=== PATIENT | male | born 1960 | race Caucasian/White ===

== ENCOUNTER 2019-02-03 09:02 | Emergency (ER) | payer MEDICARE ==
[2019-02-03] MEDS ORDERED: Iopamidol 370 76% 100 ML VIAL ONE (09:50)
[2019-02-03] MEDS ORDERED: Ketorolac Tromethamine 30 MG/ML VIAL ONE (10:00)
[2019-02-03] MEDS ORDERED: Sodium Chloride 0.9% 1,000 ML ONE (10:00)
[2019-02-03 10:03] LABS: #Basophils 0.2 thou/uL (0.0-0.2); #Eosinphils 0.1 thou/uL (0.0-0.7); #Lymphocytes 4.8 thou/uL (1.20-3.40); #Monocytes 0.9 thou/uL (0.11-0.59); #Neutrophils 5.4 thou/uL (1.40-6.50); %Basophils 1.6 % (0.0-1.0); %Lymphocytes 42.2 % (21.0-51.0); %Monocytes 7.7 % (0.0-10.0); %Neutrophils 47.5 % (42.0-75.0); Mean Corpuscular HGB CONC 31.7 g/dL (32.0-36.0); Mean Corpuscular Hemoglobin 28.7 pg (27.0-31.0); Mean Corpuscular Volume 90.5 fL (78.0-98.0); Mean Platelet Volume 10.8 fL (7.4-10.4); Platelet Count 259 thou/uL (130-400); RBC Distribution Width 11.7 % (11.5-14.5); Red Blood Cell (RBC) Count 6.28 mill/uL (4.70-6.10); White Blood Cell (WBC) Count 11.4 thou/uL (4.8-10.8)
[2019-02-03 10:31] LABS: Anion Gap 15 mmol/L (10-20); BUN (Urea Nitrogen) 11 mg/dL (8.4-25.7); Calc. Creatinine Clearance 0 mL/min (70-130); Calcium 8.7 mg/dL (7.8-10.44); Carbon Dioxide 22 mmol/L (22-29); Chloride 109 mmol/L (98-107); Estimated GFR-MDRD 65; Glucose 89 mg/dL (70-105); Potassium 3.9 mmol/L (3.5-5.1); Sodium 142 mmol/L (136-145)
--- NOTE | 2019-02-03 10:43 | CT ---
CT ABDOMEN WITH CONTRAST CT PELVIS WITH CONTRAST CT LUMBAR SPINE: (Trauma protocol) DATE: 02/03/2019 HISTORY: Trauma to the abdomen and pelvis in 58-year-old male TECHNIQUE: IV injection of iodinated contrast media: Administered Oral contrast media: Not administered FINDINGS: Liver: No laceration Spleen: No laceration Pancreas: No surrounding fluid or fat stranding. Kidneys: No hydronephrosis or laceration. Bladder: No gross evidence of rupture. Abdominal aorta: No dissection or rupture. Small bowel: No dilation. Colon: No adjacent fat stranding. Free air: None. Free fluid: None. Pelvic bones: No displaced acute fracture identified. Lumbar spine: No acute compression fracture. IMPRESSION: No evidence of acute traumatic injury within the abdomen or pelvis.
== END 2019-02-03 11:00 | disposition home or self-care (01) ==
LOC: MADERS 09:02
DX: S30.1XXA Contusion of abdominal wall, initial encounter (principal); E11.9 Type 2 diabetes mellitus without complications; J44.9 Chronic obstructive pulmonary disease, unspecified; F17.210 Nicotine dependence, cigarettes, uncomplicated; Z79.899 Other long term (current) drug therapy; Z79.51 Long term (current) use of inhaled steroids; Z79.891 Long term (current) use of opiate analgesic; Z79.4 Long term (current) use of insulin; V89.2XXA Person injured in unspecified motor-vehicle accident, traffic, initial encounter
CPT/HCPCS: 74177; 80048; 85025; J1885; J7050; Q9967

== ENCOUNTER 2019-04-16 15:08 | Emergency (ER) | payer MEDICARE ==
[2019-04-16] MEDS ORDERED: Insulin Regular 300 UNITS/3 ML VIAL ONE (15:21)
--- NOTE | 2019-04-16 15:34 | RAD ---
PORTABLE CHEST: Date: 04/16/2019 HISTORY: Hyperglycemia. COMPARISON: 05/09/02. FINDINGS: Lungs are clear of infiltrate. Heart and mediastinum appear normal. Vasculature normal. IMPRESSION: No acute findings. POS: [facility]
[2019-04-16 15:42] LABS: #Basophils 0.1 thou/uL (0.0-0.2); #Lymphocytes 0.6 thou/uL (1.20-3.40); #Monocytes 0.8 thou/uL (0.11-0.59); #Neutrophils 12.9 thou/uL (1.40-6.50); %Basophils 0.5 % (0.0-1.0); %Lymphocytes 4.4 % (21.0-51.0); %Monocytes 5.5 % (0.0-10.0); %Neutrophils 89.6 % (42.0-75.0); Hemoglobin 17.1 g/dL (14.0-18.0); Mean Corpuscular HGB CONC 30.3 g/dL (32.0-36.0); Mean Corpuscular Hemoglobin 28.3 pg (27.0-31.0); Mean Corpuscular Volume 93.4 fL (78.0-98.0); Mean Platelet Volume 9.1 fL (7.4-10.4); Platelet Count 174 thou/uL (130-400); RBC Distribution Width 11.9 % (11.5-14.5); Red Blood Cell (RBC) Count 6.04 mill/uL (4.70-6.10); White Blood Cell (WBC) Count 14.4 thou/uL (4.8-10.8)
[2019-04-16 16:03] LABS: ALT (SGPT) 24 U/L (8-55); AST (SGOT) 25 U/L (5-34); Albumin 4.4 g/dL (3.5-5.0); Alkaline Phosphatase 163 U/L (40-110); BUN (Urea Nitrogen) 70 mg/dL (8.4-25.7); Bilirubin, Total 0.5 mg/dL (0.2-1.2); Calc. Creatinine Clearance 0 mL/min (70-130); Calcium 8.7 mg/dL (7.8-10.44); Chloride 98 mmol/L (98-107); Estimated GFR-MDRD 15; Globulin 3.2 g/dL (2.4-3.5); Lipase 72 U/L (8-78); Potassium 5.4 mmol/L (3.5-5.1); Protein, Total 7.6 g/dL (6.0-8.3); Sodium 130 mmol/L (136-145)
[2019-04-16 16:18] LABS: CKMB 18.4 ng/mL (0-6.6); Carbon Dioxide Less than 8 mmol/L (22-29); Glucose 692 mg/dL (70-105)
[2019-04-16] MEDS ORDERED: Sodium Chloride 0.9% 3,000 ML ONE (16:37)
[2019-04-16] MEDS ORDERED: Sodium Chloride 0.9% 100 ML ONE (16:37)
[2019-04-16 16:54] LABS: Bilirubin Small (Negative); Blood, Urine Moderate (Negative); Clarity Clear (Clear); Glucose, Urine (Dipstick) 500 mg/dL (Negative); Leukocyte Negative (Negative); Nitrite Negative (Negative); Protein, Urine (Dipstick) 100 mg/dL (Neg-Trace); Urobilinogen 0.2 mg/dL (Less than 2)
[2019-04-16 17:00] LABS: Bacteria/HPF None Seen HPF (None Seen); RBC/HPF 0-3 HPF (0-3); Squamous Epithelial 0-3 HPF (0-3); WBC/HPF 0-3 HPF (0-3)
[2019-04-16 17:30] LABS: Base Excess-Venous -24.4 mmol/L (-2.0 to 3.0); Bicarbonate (HCO3v) 8.3 mmol/L (22.0-28.0); CO2 Tension (PvCO2) 40.2 mmHg (40.0-50.0)
[2019-04-16 17:31] LABS: Calcium, Ionized 1.15 mmol/L (See Comments:); Chloride 106 mmol/L (98-107); Hemoglobin - Calc 18.3 g/dL (14.0-18.0); Potassium 5.2 mmol/L (3.5-5.1); Sodium 127 mmol/L (138-145); T. Carbon Dioxide 9.5 mmol/L (22.0-28.0)
== END 2019-04-16 18:05 | disposition short-term general hospital (02) ==
LOC: MADERS 15:08
DX: E10.10 Type 1 diabetes mellitus with ketoacidosis without coma (principal); N17.9 Acute kidney failure, unspecified; E86.0 Dehydration; R79.89 Other specified abnormal findings of blood chemistry; J44.9 Chronic obstructive pulmonary disease, unspecified; F17.210 Nicotine dependence, cigarettes, uncomplicated; Z79.51 Long term (current) use of inhaled steroids; Z79.899 Other long term (current) drug therapy
CPT/HCPCS: 36415; 36416; 51701; 71045; 80053; 81003; 81015; 82330; 82553; 82803; 83690; 84484; 85025; 93005; 94760; 96361; 96365; 96376; J1815; J3490; J7050

== ENCOUNTER 2021-01-01 15:07 | Outpatient (CLI) | payer MEDICARE | END 2021-01-01 15:08 | disposition home or self-care (01) | LOC: MADRAD 15:07 | PROVIDERS: ATTEND Family Medicine | DX: J44.9 Chronic obstructive pulmonary disease, unspecified (principal); R06.02 Shortness of breath; R91.8 Other nonspecific abnormal finding of lung field | CPT/HCPCS: 71046 ==

== ENCOUNTER 2022-12-31 11:37 | Outpatient (CLI) | payer MEDICARE | END 2022-12-31 11:38 | disposition home or self-care (01) | LOC: MADLAB 11:37 → MADRAD 11:38 | PROVIDERS: ATTEND Nurse Practitioner Family | DX: S20.212A Contusion of left front wall of thorax, initial encounter (principal) ==